=== PATIENT | male | born 1980 | race Caucasian/White ===

== ENCOUNTER → 2016-12-15 | Outpatient (CLI) | payer BC ==
--- NOTE | ~2016-12-15 | ST ---
Unit #: [id number] #: [id number] Patient: ALBIN MOSS JR [id number] [address] [address] [id number] O MR#: [id number] NAME: ALBIN MOSS : 1980 SEX: M STUDY DATE/TIME: 12/15/2016 UNIT: CEKG ROOM: STUDY DESCRIPTION: Attending Physician: Dylan Carver M.D. Referring Physician: Dylan Carver M.D. Primary Care Physician: Dylan Carver M.D. CARDIOLOGY REPORT EXAM Stress ECG INDICATION Chest pain, dyslipidemia, abnormal ECG, family history of coronary disease. SUMMARY The patient exercised on a Ki protocol to maximal effort. The patient did not experience any symptoms. The patient completed twelve minutes of exercise, stage 4 of the Ki protocol. Heart rate increased from 75 to 163, and blood pressure increased from 132/87 to 150/80. Heart rate was 90%. The rest and stress ECGs showed no diagnostic ST shifts, no significant dysrhythmias, and no heart block. IMPRESSION 1. Excellent exercise capacity. 2. Normal heart rate and blood pressure responses. 3. Normal stress ECG. Dictated by... Bailey Hazel/ismael TD: 12/16/2016 10:12 JOB #: [id number] CARDIOLOGY REPORT Page 1 of 1 X Eben Quintanilla MD CARDIOLOGY REPORT
--- NOTE | ~2016-12-15 | US128 ---
[id number] [facility] [address]. [place], [place] [address] [id number] O MR#: [id number] Acc #: [id number] NAME: ALBIN MOSS : 1980 SEX: M STUDY DATE/TIME: 12/15/2016 10:50 UNIT: CEKG ROOM: STUDY DESCRIPTION: Thyroid Attending Physician: Dylan Carver M.D. Referring Physician: Dylan Carver M.D. Ordering Physician: Dylan Carver M.D. Primary Care Physician: Dylan Carver M.D. MEDICAL IMAGING REPORT This report is preliminary unless electronic signature is present EXAM Thyroid ultrasound 12/15/2016 HISTORY Thyromegaly. Difficulty swallowing for 10 years. COMPARISON None. FINDINGS The right thyroid lobe measures 2.7 x 5.0 x 2.1 cm. The left lobe measures 2.2 x 4.1 x 2.0 cm. The isthmus measures 5 mm thickness. Thyroid parenchyma is very coarsened and heterogeneous but appears somewhat fibrotic. A hypoechoic predominantly cystic-appearing nodule is demonstrated within the posterior right mid thyroid lobe measuring 7.4 x 6.8 x 4.9 mm. A hypoechoic solid-appearing nodule is demonstrated in the posterior left mid thyroid lobe measuring 6.9 x 8.9 x 6 mm. No suspicious microcalcifications are seen. The imaged extrathyroidal soft tissues appear unremarkable. IMPRESSION 1. Heterogeneous coarsened thyroid gland suggestive of previous thyroiditis. 2. Thyroid gland size is upper limits normal, right lobe being slightly larger than left. 3. Single right and left thyroid nodules as described above. These do not meet ultrasound criteria to warrant fine-needle aspiration at this time. Dictated by... Priscilla Andres M.D. THIS IS AN ELECTRONICALLY VERIFIED REPORT Priscilla Andres M.D. at 12/19/2016 9:52 AM HOLLY/robert TD: 12/18/2016 06:46 JOB #: [id number] MEDICAL IMAGING REPORT Page 1 of 1 COPY
== END | disposition home or self-care (01) ==
LOC: CEKG 09:31
DX: E01.0 Iodine-deficiency related diffuse (endemic) goiter (principal); R07.89 Other chest pain; R00.1 Bradycardia, unspecified; E04.2 Nontoxic multinodular goiter
CPT/HCPCS: 76536; 93017